=== PATIENT | male | born 1975 | race African-American/Black ===

== ENCOUNTER 2020-09-15 11:09 | Emergency (ER) | payer OTHER ==
[~2020-09-15] VITALS: Ht 182.9 cm; Wt 125.0 kg
[2020-09-15] MEDS ORDERED: MAGNESIUM/ALUMINUM HYDROXIDE/SIMETHICONE 30ML UDC PO ONE (12:00)
[2020-09-15] MEDS ORDERED: DIAZEPAM 5 MG TABLET PO ONE (12:00)
[2020-09-15 12:40] LABS: BASOPHILS % 0.7 % (0.0-2.0); EOSINOPHILS % 0.1 % (0.0-5.0); HEMATOCRIT. 44.9 % (42.0-52.0); HEMOGLOBIN. 15.2 g/dL (14.0-18.0); MEAN CORPUSCULAR HEMOGLOBIN 30.4 pg (28.0-32.0); MEAN CORPUSCULAR VOLUME 89.5 fL (80.0-94.0); MONOCYTES % 5.6 % (2.0-8.0); NEUTROPHILS % 81.6 % (40.0-76.0); PLATELET 279 x1000/uL (130-400); RED BLOOD CELL COUNT 5.01 mill/uL (4.7-6.1); RED CELL DISTRIBUTION WIDTH 15.8 % (11.6-14.6)
[2020-09-15 12:41] LABS: CHLORIDE 109 mEq/L (98-107)
[2020-09-15 12:48] LABS: ETHANOL BLOOD < 10 mg/dL
[2020-09-15 14:27] VITALS: BP 163/80
== END 2020-09-15 14:48 | disposition home or self-care (01) ==
LOC: ER 11:09
DX: R45.1 Restlessness and agitation (principal); F14.10 Cocaine abuse, uncomplicated
CPT/HCPCS: 36415; 80053; 80320; 82962; 85025; 93005; 99284; G0480